=== PATIENT | female | born 1965 | race Caucasian/White ===

== ENCOUNTER 2023-01-30 07:30 | Emergency (ER) | payer OTHER ==
[2023-01-30] MEDS ORDERED: KETOROLAC 15 MG/ML 1 ML VIAL IM STA (08:04)
--- NOTE | 2023-01-30 08:18 | ED ---
General Adult HPI - General Chief complaint: Extremity Problem,Nontraumatic Stated complaint: Left shoulder pain Time Seen by Provider: 01/30/23 07:43 Source: patient, RN notes reviewed Mode of arrival: ambulatory Limitations: no limitations - History of Present Illness Initial comments: 57 year old female presents to the emergency department for chief complaint of neck and left shoulder pain. States that she has been told that she has osteoarthritis of her neck and prior partial rotator cuff injury. She states that the pain started about a week ago and has been worsening. There are no aggravating factors. She states she had tingling in her fingers yesterday but this has subsided now. Denies fever. Denies renal and hepatic impairment. - Related Data Previous Rx's Medication Instructions Recorded Cyclobenzaprine [Flexeril] 5 mg PO TID PRN #15 tablet 01/30/23 Allergies Allergy/AdvReac Type Severity Reaction Status Date / Time No Known Allergies Allergy Verified 01/30/23 07:36 Review of Systems ROS Statement: Those systems with pertinent positive or pertinent negative responses have been documented in the HPI. ROS Other: All systems not noted in ROS Statement are negative. Past Medical History Past Medical History: Asthma, Hypertension History of Any Multi-Drug Resistant Organisms: None Reported Past Surgical History: No Surgical Hx Reported Past Psychological History: No Psychological Hx Reported Smoking Status: Current every day smoker Past Alcohol Use History: Occasional Past Drug Use History: None Reported General Exam Limitations: no limitations General appearance: alert, in no apparent distress Head exam: Present: atraumatic, normocephalic, normal inspection Eye exam: Present: normal appearance, PERRL, EOMI. Absent: scleral icterus, conjunctival injection, periorbital swelling ENT exam: Present: normal exam, mucous membranes moist Neck exam: Present: normal inspection, tenderness (left trapezius tenderness). Absent: meningismus, lymphadenopathy Respiratory exam: Present: normal lung sounds bilaterally. Absent: respiratory distress, wheezes, rales, rhonchi, stridor Cardiovascular Exam: Present: regular rate, normal rhythm, normal heart sounds. Absent: systolic murmur, diastolic murmur, rubs, gallop, clicks Extremities exam: Present: normal inspection, full ROM, tenderness (left deltoid ttp ), normal capillary refill, other (4/5 strength of left upper extremity ). Absent: pedal edema, joint swelling, calf tenderness Back exam: Present: normal inspection, full ROM Neurological exam: Present: alert, oriented X3 Skin exam: Present: warm, dry, intact, normal color. Absent: rash Course Vital Signs 01/30/23 01/30/23 07:34 09:12 Temperature 98 F 98.1 F Pulse Rate 97 72 Respiratory 18 16 Rate Blood Pressure 167/80 121/68 O2 Sat by Pulse 99 98 Oximetry Medical Decision Making - Medical Decision Making Was pt. sent in by a medical professional or institution ([facility], TESTING AND REGULATING CHIEF, urgent care, hospital, or [facility]...) When possible be specific @ -No Did you speak to anyone other than the patient for history (EMS, parent, family, police, friend...)? What history was obtained from this source @ -No Did you review nursing and triage notes (agree or disagree)? Why? @ -I reviewed and agree with nursing and triage notes Were old charts reviewed (outside hosp., previous admission, EMS record, old EKG, old radiological studies, urgent care reports/EKG's, [facility] records)? Report findings @ -No old charts were reviewed Differential Diagnosis (chest pain, altered mental status, abdominal pain women, abdominal pain men, vaginal bleeding, weakness, fever, dyspnea, syncope, headache, dizziness, GI bleed, back pain, seizure, CVA, palpatations, mental health, musculoskeletal)? @ -Cervical fracture, myalgia, muscle strain, this list is not all inclusive EKG interpreted by me (3pts min.). @ -None X-rays interpreted by me (1pt min.). @ -X-ray cervical spine shows mild degenerative disc disease in the lower cervical spine CT interpreted by me (1pt min.). @ -None done U/S interpreted by me (1pt. min.). @ -None done What testing was considered but not performed or refused? (CT, X-rays, U/S, labs)? Why? @ -None What meds were considered but not given or refused? Why? @ -None Did you discuss the management of the patient with other professionals (professionals i.e. [facility], TESTING AND REGULATING CHIEF, lab, RT, psych nurse, bilingual social worker, tube balancer, teacher, inshore undersea warfare officer, case management director)? Give summary @ -No Was smoking cessation discussed for >3mins.? @ -No Was critical care preformed (if so, how long)? @ -No Were there social determinants of health that impacted care today? How? ([place] elessness, low income, unemployed, alcoholism, drug addiction, transportation, low edu. Level, literacy, decrease access to med. care, [facility], rehab)? @ -No Was there de-escalation of care discussed even if they declined (Discuss DNR or withdrawal of care, Hospice)? DNR status @ -No What co-morbidities impacted this encounter? (DM, HTN, Smoking, COPD, CAD, Cancer, CVA, ARF, Chemo, Hep., AIDS, mental health diagnosis, sleep apnea, morbid obesity)? @ -None Was patient admitted / discharged? Hospital course, mention meds given and route, prescriptions, significant lab abnormalities, going to OR and other pertinent info. @ -Discharged. 57-year-old female presented to the emergency department with neck pain. X-ray cervical spine obtained. IM toradol administered. Prescription sent for flexeril. discharged in stable condition. Undiagnosed new problem with uncertain prognosis? @ -No Drug Therapy requiring intensive monitoring for toxicity (Heparin, Nitro, Insulin, Cardizem)? @ -No Were any procedures done? @ -No Diagnosis/symptom? @ -muscle strain Acute, or Chronic, or Acute on Chronic? @ -acute Uncomplicated (without systemic symptoms) or Complicated (systemic symptoms)? @ -uncomplicated Side effects of treatment? @ -No Exacerbation, Progression, or Severe Exacerbation? @ -No Poses a threat to life or bodily function? How? (Chest pain, [place], [place], pneumonia, PE, COPD, DKA, ARF, appy, cholecystitis, CVA, Diverticulitis, Homicidal, Suicidal, threat to staff... and all critical care pts) @ -No Disposition Clinical Impression: Trapezius muscle strain Disposition: HOME SELF-CARE Condition: Stable Instructions (If sedation given, give patient instructions): Shoulder Pain (ED) Additional Instructions: Please return to the Emergency Department if symptoms worsen or any other concerns. Prescriptions: Cyclobenzaprine [Flexeril] 5 mg PO TID PRN #15 tablet PRN Reason: Pain Is patient prescribed a controlled substance at d/c from ED?: No Referrals: None,Stated [Primary Care Provider] - 1-2 days Time of Disposition: 09:25
--- NOTE | 2023-01-30 08:34 | XR ---
Cervical spine HISTORY: Neck pain. COMPARISON: None TECHNIQUE: 5 views of cervical spine were obtained. FINDINGS: The craniovertebral junction relationships and prevertebral soft tissues are normal. The cervical vertebral segments are normal in height and alignment and there is no fracture subluxati on. There is mild degenerative disc disease at the C4-5, C5-6 and C6-7 levels where there is mild disc sp irish narrowing and minimal spondylosis. There is mild degeneration of the uncovertebral joints at C4-5, C5-6 and C6-7 resulting in mild bony neural foraminal encroachment at these levels bilaterally. IMPRESSION: 1. Mild degenerative disc disease in lower cervical spine. 2. Mild degenerative changes in the uncovertebral joints lower cervical spine as described above.
[2023-01-30 09:14] VITALS: BP 121/68; PULSE 72; RESP 16; TEMP 98.1
== END 2023-01-30 09:34 | disposition home or self-care (01) ==
LOC: EC 07:30
DX: S46.812A Strain of other muscles, fascia and tendons at shoulder and upper arm level, left arm, initial encounter (principal); M50.30 Other cervical disc degeneration, unspecified cervical region; M47.812 Spondylosis without myelopathy or radiculopathy, cervical region; J45.909 Unspecified asthma, uncomplicated; I10 Essential (primary) hypertension; F17.200 Nicotine dependence, unspecified, uncomplicated; X58.XXXA Exposure to other specified factors, initial encounter
CPT/HCPCS: 72050; 99283; 96372; J1885

== ENCOUNTER 2024-06-08 15:32 | Emergency (ER) | payer OTHER | END 2024-06-08 16:49 | disposition home or self-care (01) | LOC: EC 15:32 | CPT/HCPCS: 99282 ==

== ENCOUNTER 2024-06-16 14:06 | Emergency (ER) | payer OTHER | END 2024-06-16 15:30 | disposition home or self-care (01) | LOC: EC 14:06 | CPT/HCPCS: 99283 ==